=== PATIENT | female | born 1985 | race Caucasian/White ===

== ENCOUNTER 2023-01-10 21:53 | Emergency (ER) | payer OTHER ==
[2023-01-10 22:05] VITALS: RESP 18; TEMP 97.9
--- NOTE | 2023-01-10 22:23 | ED ---
General Adult HPI - General Source: patient, RN notes reviewed Mode of arrival: ambulatory Limitations: no limitations <Bambi Monroe - Last Filed: 01/10/23 23:32> <Pool Giraldo - Last Filed: 01/11/23 01:42> - General Chief complaint: Extremity Injury, Lower Stated complaint: Lt knee pain Time Seen by Provider: 01/10/23 22:07 - History of Present Illness Initial comments: 37-year-old female presented to the emergency department with chief complaint of left knee pain. She states that the pain started 2-3 days ago. She states that she is numb from 2 inches above the knee to her toes. She denies any trauma. She states that she had a meniscus repair of her left knee 2 years ago. She states that she called the orthopedic doctor on-call from the office that she got her surgery done which she states was in [place]. She has been taking Tylenol for pain at home. Upon further questioning patient states that her low back is also numb bilaterally, but she is not having any pain in her back or neck. She was asked to ambulate which she did with a limp. She states that she is able to feel her shoulders but Upon repeat questioning and examination she denied feeling sharp touch to her entire back up to her shoulders. Denies fever. (Bambi Monroe) - Related Data Previous Rx's Medication Instructions Recorded Naproxen [EC-Naproxen] 500 mg PO BID #30 tab 01/11/23 Allergies Allergy/AdvReac Type Severity Reaction Status Date / Time No Known Allergies Allergy Verified 01/10/23 22:04 Review of Systems ROS Other: All systems not noted in ROS Statement are negative. <Bambi Monroe - Last Filed: 01/10/23 23:32> ROS Other: All systems not noted in ROS Statement are negative. <Pool Giraldo - Last Filed: 01/11/23 01:42> ROS Statement: Those systems with pertinent positive or pertinent negative responses have been documented in the HPI. Past Medical History Past Medical History: No Reported History History of Any Multi-Drug Resistant Organisms: None Reported Past Surgical History: Bariatric Surgery, Section, Cholecystectomy, Orthopedic Surgery Additional Past Surgical History / Comment(s): lt knee Past Psychological History: No Psychological Hx Reported Smoking Status: Current every day smoker Past Alcohol Use History: Occasional Past Drug Use History: None Reported <Bambi Monroe - Last Filed: 01/10/23 23:32> General Exam Limitations: no limitations General appearance: alert, in no apparent distress Head exam: Present: atraumatic, normocephalic, normal inspection Eye exam: Present: normal appearance, PERRL, EOMI. Absent: scleral icterus, conjunctival injection, periorbital swelling ENT exam: Present: normal exam, mucous membranes moist Neck exam: Present: normal inspection, full ROM. Absent: tenderness, meningismus, lymphadenopathy Respiratory exam: Present: normal lung sounds bilaterally. Absent: respiratory distress, wheezes, rales, rhonchi, stridor Cardiovascular Exam: Present: regular rate, normal rhythm, normal heart sounds. Absent: systolic murmur, diastolic murmur, rubs, gallop, clicks Extremities exam: Present: normal inspection, tenderness (TTP of left knee), normal capillary refill, other (pulses 2+, ). Absent: joint swelling, calf tenderness Back exam: Present: normal inspection Neurological exam: Present: alert, oriented X3, CN II-XII intact, abnormal gait Expanded Sensory exam: Upper Extremity Light Touch: Normal, Upper Extremity Pin Prick: Normal, Lower Extremity Light Touch: Abnormal Left, Lower Extremity Pin Prick: Abnormal Left (absent from 2 inches proximal to the knee down) Motor strength exam: RUE: 5, LUE: 5, RLE: 5, LLE: 2/1 (no dorsiflexion or plantarflexion) DTR: Patellar (R): 2+, Patellar (L): 2+ Eye Response: (4) open spontaneously Motor Response: (6) obeys commands Verbal Response: (5) oriented [place] Total: 15 Psychiatric exam: Present: normal affect, normal mood Skin exam: Present: warm, dry, intact, normal color. Absent: rash <Bambi Monroe - Last Filed: 01/10/23 23:32> Course Vital Signs 01/10/23 22:00 Temperature 97.9 F Pulse Rate 90 Respiratory 18 Rate Blood Pressure 142/95 O2 Sat by Pulse 96 Oximetry Medical Decision Making <Bambi Monroe - Last Filed: 01/10/23 23:32> - Lab Data Result diagrams: 01/10/23 23:21 01/10/23 23:21 <Pool Giraldo - Last Filed: 01/11/23 01:42> - Medical Decision Making Was pt. sent in by a medical professional or institution (JEREMY De La Torre, APPRAISAL MANAGER, urgent care, hospital, or [place] health care facility...) When possible be specific @ -No Did you speak to anyone other than the patient for history (EMS, parent, family, police, friend...)? What history was obtained from this source @ -No Did you review nursing and triage notes (agree or disagree)? Why? @ -I reviewed and agree with nursing and triage notes Were old charts reviewed (outside hosp., previous admission, EMS record, old EKG, old radiological studies, urgent care reports/EKG's, [place] health care facility records)? Report findings @ -No old charts were reviewed Differential Diagnosis (chest pain, altered mental status, abdominal pain women, abdominal pain men, vaginal bleeding, weakness, fever, dyspnea, syncope, headache, dizziness, GI bleed, back pain, seizure, CVA, palpatations, mental health, musculoskeletal)? @ -sciatica, knee fracture, back injury, herniated disc, Differential Back Pain: Strain, zoster, cauda equina syndrome, epidural abscess, vertebral osteomyelitis, discitis, fracture, subluxation, disc herniation, DJD, spinal stenosis, dissection, AAA, pancreatitis, peptic ulcer disease, pyelonephritis, kidney stone, this is not meant to be an all-inclusive list. EKG interpreted by me (3pts min.). @ -None X-rays interpreted by me (1pt min.). @ -X-ray left knee shows X-ray lumbar spine shows X-ray pelvis shows CT interpreted by me (1pt min.). @ -None done U/S interpreted by me (1pt. min.). @ -None done What testing was considered but not performed or refused? (CT, X-rays, U/S, labs)? Why? @ -None What meds were considered but not given or refused? Why? @ -None Did you discuss the management of the patient with other professionals (professionals i.e. JEREMY De La Torre, APPRAISAL MANAGER, lab, RT, psych nurse, high school social science teacher, manager desktop, teacher, credit products officer, corrections caseworker)? Give summary @ -No Was smoking cessation discussed for >3mins.? @ -No Was critical care preformed (if so, how long)? @ -No Were there social determinants of health that impacted care today? How? (Homelessness, low income, unemployed, alcoholism, drug addiction, transportation, low edu. Level, literacy, decrease access to med. care, [facility], rehab)? @ -No Was there de-escalation of care discussed even if they declined (Discuss DNR or withdrawal of care, Hospice)? DNR status @ -No What co-morbidities impacted this encounter? (DM, HTN, Smoking, COPD, CAD, Cancer, CVA, ARF, Chemo, Hep., AIDS, mental health diagnosis, sleep apnea, morbid obesity)? @ -None Was patient admitted / discharged? Hospital course, mention meds given and route, prescriptions, significant lab abnormalities, going to OR and other pertinent info. @ -Patient signed out to Dr. Giraldo. Patient presented to the emergency department with chief complaint of left knee pain. Patient stated that she had numbness of the left lower extremity. She was unable to dorsiflex or plantar f christine her left foot. Patellar reflexes 2+. DP and PT Pulses 2+. She was able to feel light touch on both right and left shoulder but denied feeling in bilateral lower back and left lower extremity from 2 inches above the knee down to her toes. Upon reexamination patient had numbness to pinprick of left lower extremity starting 2 inches proximal to the knee and throughout her entire back up to her shoulders. Patient ambulated during which she complained of left knee pain. CBC, CMP, X-ray left knee, pelvis, lumbar spine pending at time of sign out. Patient stable at time of sign out 23:39. Undiagnosed new problem with uncertain prognosis? @ -No Drug Therapy requiring intensive monitoring for toxicity (Heparin, Nitro, Insulin, Cardizem)? @ -No Were any procedures done? @ -No Diagnosis/symptom? @ - Acute, or Chronic, or Acute on Chronic? @ -Acute Uncomplicated (without systemic symptoms) or Complicated (systemic symptoms)? @ -default Side effects of treatment? @ -No Exacerbation, Progression, or Severe Exacerbation? @ -No Poses a threat to life or bodily function? How? (Chest pain, USA, AR, pneumonia, PE, COPD, DKA, ARF, appy, cholecystitis, CVA, Diverticulitis, Homicidal, Suicidal, threat to staff... and all critical care pts) @ -No (Bambi Monroe) The patient was signed out to me pending completion of the laboratory workup and imaging. All laboratory workup was within normal limits. The x-ray of the left knee was interpreted by myself and showed arthritis.on reevaluation, the patient was resting in bed comfortably. The patient was given a dose of Toradol and on reevaluation once again had improvement of her pain. The patient denied any numbness or tingling in the lower extremities. The patient was able to ambulate to the bathroom without any assistance and was deemed stable for discharge. The patient was given a prescription for naproxen and told to continue take his medication as prescribed. The patient was advised to follow-up with her primary care physician for further workup and evaluation. The patient was discharged home in stable condition. SUPERVISORY NOTE: I have reviewed all documentation, results, and performed the MDM in its entirety, which constitutes a substantive portion of the visit. (Pool Giraldo) - Lab Data Lab Results 01/10/23 01/10/23 Range/Units 23:21 23:21 WBC 5.0 (3.8-10.6) k/uL RBC 4.15 (3.80-5.40) m/uL Hgb 9.9 L (11.4-16.0) gm/dL Hct 32.5 L (34.0-46.0) % MCV 78.2 L (80.0-100.0) fL MCH 23.9 L (25.0-35.0) pg MCHC 30.5 L (31.0-37.0) g/dL RDW 18.7 H (11.5-15.5) % Plt Count 138 L (150-450) k/uL MPV 8.7 Hypochromasia Marked Poikilocytosis Slight Anisocytosis Slight Microcytosis Slight Sodium 140 (137-145) mmol/L Potassium 3.6 (3.5-5.1) mmol/L Chloride 110 H (98-107) mmol/L Carbon Dioxide 22 (22-30) mmol/L Anion Gap 8 mmol/L BUN 9 (7-17) mg/dL Creatinine 0.72 (0.52-1.04) mg/dL Est GFR (CKD-EPI)AfAm >90 (>60 ml/min/1.73 sqM) Est GFR (CKD-EPI)NonAf >90 (>60 ml/min/1.73 sqM) Glucose 91 (74-99) mg/dL Calcium 8.1 L (8.4-10.2) mg/dL Total Bilirubin 0.4 (0.2-1.3) mg/dL AST 38 H (14-36) U/L ALT 29 (4-34) U/L Alkaline Phosphatase 73 (38-126) U/L Total Protein 6.8 (6.3-8.2) g/dL Albumin 4.1 (3.5-5.0) g/dL Disposition <Bambi Monroe - Last Filed: 01/10/23 23:32> Is patient prescribed a controlled substance at d/c from ED?: No Time of Disposition: 01:15 <Pool Giraldo - Last Filed: 01/11/23 01:42> Clinical Impression: Arthritis of left knee Disposition: HOME SELF-CARE Condition: Stable Instructions (If sedation given, give patient instructions): Knee Pain (ED) Prescriptions: Naproxen [EC-Naproxen] 500 mg PO BID #30 tab Referrals: None,Stated [Primary Care Provider] - 1-2 days
--- NOTE | 2023-01-10 23:33 | XR ---
EXAMINATION TYPE: XR pelvis AP view DATE OF EXAM: 01/10/2023 CLINICAL HISTORY: Pain. TECHNIQUE: A single AP view of the pelvis is obtained. COMPARISON: None. FINDINGS: There is no acute fracture/dislocation evident in the pelvis. Mild symmetric axial joint s pace loss in both hips. Sacroiliac joints show mild asymmetric narrowing on the right. Pubic symphys is is intact. The overlying soft tissue appears unremarkable. IMPRESSION: As above.
--- NOTE | 2023-01-10 23:34 | XR ---
EXAMINATION TYPE: XR lumbar spine 2 or 3V DATE OF EXAM: 01/10/2023 CLINICAL HISTORY: Low back pain. TECHNIQUE: Frontal and lateral images of the lumbar spine are obtained. COMPARISON: None FINDINGS: There are 5 lumbar type vertebral bodies identified. The lumbar spine shows satisfactory alignment without evidence of acute fracture or dislocation. Moderate to severe disc space narrowing L5-S1 level otherwise vertebral body heights and disk space heights are within normal limits. Cholecy stectomy clips are seen in the overlying soft tissue. IMPRESSION: As above.
--- NOTE | 2023-01-10 23:35 | XR ---
EXAMINATION TYPE: XR knee complete LT DATE OF EXAM: 01/10/2023 CLINICAL HISTORY: Pain. TECHNIQUE: Three views of the left knee are obtained. COMPARISON: None. FINDINGS: There is no acute fracture/dislocation evident in left knee. Mild to moderate tricompartme nt joint space loss without significant spurring. The overlying soft tissue appears unremarkable. IMPRESSION: As above.
[2023-01-10 23:38] LABS: Anisocytosis Slight; HCT 32.5 % (34.0-46.0); HGB 9.9 gm/dL (11.4-16.0); Hypochromasia Marked; MCH 23.9 pg (25.0-35.0); MCHC 30.5 g/dL (31.0-37.0); MCV 78.2 fL (80.0-100.0); Mean Platelet Volume 8.7; Microcytosis Slight; Platelet Count 138 k/uL (150-450); Poikilocytosis Slight; RBC 4.15 m/uL (3.80-5.40); RDW 18.7 % (11.5-15.5)
[2023-01-10 23:53] LABS: ALT 29 U/L (4-34); AST 38 U/L (14-36); African American GFR (CKD) >90 (>60 ml/min/1.73 sqM); Albumin 4.1 g/dL (3.5-5.0); Alkaline Phosphatase 73 U/L (38-126); Anion Gap 8 mmol/L; Blood Urea Nitrogen 9 mg/dL (7-17); Calcium 8.1 mg/dL (8.4-10.2); Carbon Dioxide 22 mmol/L (22-30); Chloride 110 mmol/L (98-107); Glucose 91 mg/dL (74-99); Non-African American GFR(CKD) >90 (>60 ml/min/1.73 sqM); Potassium 3.6 mmol/L (3.5-5.1); Sodium 140 mmol/L (137-145); Total Bilirubin 0.4 mg/dL (0.2-1.3); Total Protein 6.8 g/dL (6.3-8.2)
[2023-01-11] MEDS ORDERED: KETOROLAC 15 MG/ML 1 ML VIAL IVP STA (01:35)
[2023-01-11 01:43] VITALS: BP 130/75; PULSE 82
== END 2023-01-11 01:56 | disposition home or self-care (01) ==
LOC: EC 21:53
DX: M12.562 Traumatic arthropathy, left knee (principal); F17.200 Nicotine dependence, unspecified, uncomplicated; Z90.49 Acquired absence of other specified parts of digestive tract
CPT/HCPCS: 36415; 80053; 85027; 72100; 72170; 73562; 99283; 96374; J1885